=== PATIENT | male | born 1945 | race Caucasian/White ===

== ENCOUNTER 2017-11-18 02:19 | Observation (INO) | payer MEDICARE ==
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
[2017-11-18] MEDS ORDERED: Ondansetron INJ* 2 MG/ML VIAL IV PRN (04:00)
[2017-11-18] MEDS ORDERED: Al Hydrox/Mg Hydrox/Simet LIQ* 30 ML UDC PO PRN (04:00)
[2017-11-18] MEDS ORDERED: Thiamine IV 100 MG, Folic Acid IV* 1 MG, Multiple Vitamin IV ADULT* 10 ML in NS 0.9% 10... IV ONE (04:14)
[2017-11-18] MEDS ORDERED: Potassium Chlor TAB* 20 MEQ TAB.ER PO ONE (04:31)
[2017-11-18] MEDS ORDERED: LORazepam TAB(*) 1 MG PO SCH (05:00)
[2017-11-18] MEDS ORDERED: Levothyroxine TAB* 100 MCG TAB PO SCH (06:00)
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
[2017-11-18] MEDS ORDERED: Multivitamins/Minerals TAB PO SCH (09:00)
[2017-11-18] MEDS ORDERED: Thiamine TAB* 100 MG TAB PO SCH (09:00)
[2017-11-18] MEDS ORDERED: Folic Acid TAB* 1 MG PO SCH (09:00)
--- NOTE | 2017-11-18 10:17 | RAD ---
INDICATION: Follow-up subdural hematoma COMPARISON: Head CT dated November 17, 2017 TECHNIQUE: Contiguous axial sections of the brain were obtained from the skull base to the vertex without contrast. FINDINGS: The ventricles, cisterns and sulci are within normal limits. The kumar-white matter differentiation is adequately maintained and there is no sulcal effacement. No significant focal abnormality or mass effect is present. There is no evidence for intracranial hemorrhage. No significant focal osseous abnormality is present. The visualized portion of the paranasal sinuses appear clear. The mastoid air cells are well aerated bilaterally. IMPRESSION: Normal CT of the brain.
--- NOTE | 2017-11-18 10:51 | PN ---
Progress Note - Progress Note Date of Service: 11/18/17 Note: I advised the patient that he had a blackout spell and that he doesn't remember how many beers he drank. I told him this was risky behavior and that he should limiit himself to 2 beers per day.
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
[2017-11-19] MEDS ORDERED: Potassium Chlor TAB* 10 MEQ TAB.ER PO ONE (10:45)
== END 2017-11-18 12:30 | disposition home or self-care (01) ==
LOC: ED 02:19 → MEDTELE 04:00
PROVIDERS: ADMIT Internal Medicine; ATTEND Internal Medicine
DX: S06.5X0A Traumatic subdural hemorrhage without loss of consciousness, initial encounter (principal); W01.10XA Fall on same level from slipping, tripping and stumbling with subsequent striking against unspecified object, initial encounter; Y92.9 Unspecified place or not applicable; E03.9 Hypothyroidism, unspecified; Z79.82 Long term (current) use of aspirin; Z79.899 Other long term (current) drug therapy; B00.9 Herpesviral infection, unspecified; Z87.891 Personal history of nicotine dependence; F10.129 Alcohol abuse with intoxication, unspecified; E87.6 Hypokalemia
CPT/HCPCS: 70450; 96365; 96366; 99283; A9270-GY; G0378; J3411